=== PATIENT | female | born 1990 | race Two or more races ===

== ENCOUNTER 2024-01-06 23:07 | Observation (INO) | payer MEDICAID, OTHER ==
[~2024-01-06] VITALS: Ht 170.2 cm; Wt 113.4 kg
== END 2024-01-07 01:04 | disposition home or self-care (01) ==
LOC: LDRP 23:07
PROVIDERS: ADMIT Obstetrics & Gynecology; ATTEND Obstetrics & Gynecology
DX: O36.8130 Decreased fetal movements, third trimester, not applicable or unspecified (principal); Z3A.38 38 weeks gestation of pregnancy; Z79.899 Other long term (current) drug therapy
CPT/HCPCS: 59025; 76818; 81002; G0378

== ENCOUNTER 2024-04-08 16:57 | Emergency (ER) | payer MEDICAID ==
[~2024-04-08] VITALS: Ht 170.2 cm; Wt 105.6 kg
[2024-04-08 17:51] VITALS: BP 126/70; PULSE 129; RESP 22; O2SAT 97
[2024-04-08] MEDS ORDERED: KETOROLAC TROMETH 60MG/2ML VIAL IM ONE (19:00)
--- NOTE | 2024-04-08 23:53 | ED.PDOC ---
GI ASSESSMENT HPI Comments This patient is a pleasant but morbidly obese 33-year-old female who arrives the ED today with complaints of flu-like symptoms including fever, cough and body aches as well as pelvic pain that began yesterday and continued into today. Patient states that she thinks the pelvic pain is coming from the severe coughing started patient states the pelvic pain is at the site of her from several months back. Patient denies any recent travel or new food sources. Patient was febrile, tachycardic and tachypneic at arrival. Chief Complaint: Flu like Time Seen by MD: 18:52 Reviewed Notes: Nurses Notes Allergies: Coded Allergies: NO KNOWN ALLERGIES (Unverified , 01/06/24) Home Meds No Active Prescriptions or Reported Meds Information Source: Patient Mode of Arrival: Ambulatory Timing: Days Duration: Since onset Prehospital treatment: None Quality: Cramping, Sharp Vomitus: Bilious, Food Particles, Soft, Watery Severity: Moderate Recent: None Recent Hx of: None Pain Location: Other (Diffuse bilateral lower quadrant/pelvic pain.) Associated sign and symptoms: Fever Past Medical History PAST MEDICAL HISTORY: Denies Surgical History: Denies all surgeries PET STYLIST History: No Pertinent PET STYLIST History Family History Family History: Reviewed,noncontributory to illness, No family hx of Cancer, No family hx of DM, No family hx of Heart bulmaro, No family hx of HTN, No family hx ofKidney bulmaro, No family hx of Liver bulmaro, No family hx of Lung bulmaro, No family hx of Stroke Social History Smoker: Non-Smoker Alcohol: Denies ETOH Use Drugs: Denies Drug Use Lives In: Home Constitutional: reports: fatigue, fever, weakness; denies: chills, diaphoresis, malaise, sweats, others EENTM: denies: blurred vision, double vision, ear bleeding, ear discharge, ear drainage, ear pain, ear ringing, eye pain, eye redness, hearing loss, mouth pain, mouth swelling, nasal discharge, nose bleeding, nose congestion, nose pain, photophobia, tearing, throat pain, throat swelling, voice changes, others Respiratory: reports: cough; denies: hemoptysis, orthopnea, SOB at rest, shortness of breath, SOB with excertion, stridor, wheezing, others Cardiovascular: denies: chest pain, dizzy spells, diaphoresis, Dyspnea on exertion, edema, irregular heart beat, left arm pain, lightheadedness, palpitations, PND, syncope, others Gastrointestinal: reports: abdominal pain; denies: abdomen distended, blood streaked bowels, constipated, diarrhea, dysphagia, difficulty swallowing, hematemesis, melena, nausea, poor appetite, poor fluid intake, rectal bleeding, rectal pain, vomiting, others Genitourinary: denies: abnormal vagina bleeding, burning, dyspareunia, dysuria, flank pain, frequency, hematuria, incontinence, pain, , vagina discharge, urgency, others Neurological: denies: dizziness, fainting, headache, left sided numbness, left sided weakness, numbness, paresthesia, pre-existing deficit, right sided numbness, right sided weakness, seizure, speech problems, tingling, tremors, weakness, others Musculoskeletal: denies: back pain, gout, joint pain, joint swelling, muscle pain, muscle stiffness, neck pain, others Integumetry: denies: bruises, change in color, change in hair/nails, dryness, laceration, lesions, lumps, rash, wounds, others Allergic/Immunocompromised: denies: Difficulty Healing, Frequent Infections, Hives, Itching, others Hematologic/Lymphatic: denies: anemia, blood clots, easy bleeding, easy bruising, swollen glands, others Endocrine: denies: excessive hunger, excessive sweating, excessive thirst, excessive urination, flushing, intolerance to cold, intolerance to heat, une xplained weight gain, unexplained weight loss, others Psychiatric: denies: anxiety, bipolar disorder, depression, hopeless, panic disorder, schizophrenia, sleepless, suicidal, others Physical Exam General Appearance: Moderate Distress (Patient personally hemoptysis at time of evaluation due to lower belly pain and fever concerns. Patient looks moderately toxic.), Obese HEENT: Normal ENT Inspection, Pharynx Normal, TMs Normal Neck: Full Range of Motion, Non-Tender, Normal, Normal Inspection Respiratory: Chest Non-Tender, Lungs Clear, No Accessory Muscle Use, No Respiratory Distress, Normal Breath Sounds Cardiovascular: No Edema, No JVD, No Murmur, No Gallop, Normal Peripheral Pulses, Regular Rate/Rhythm Breast Exam: Deferred Gastrointestinal: Other (Diffuse bilateral lower abdominal/pelvic tenderness to palpation throughout her region. No signs of dehiscence. 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 Was a procedure done?: No GI differential Dx Differential Diagnosis: Other (Influenza a/B, COVID-19, viral illness, viral gastroenteritis, viral upper respiratory illness, urinary tract infection) X-Ray, Labs, Meds, VS Vital Signs Date Time Temp Pulse Resp B/P (MAP) Pulse Ox O2 Delivery O2 Flow Rate FiO2 04/08/24 17:51 100.8 129 22 126/70 (88) 97 X-Ray, Labs, Meds, VS Comment Patient was seen but patient never turned in her urine nor was she swabbed. Nursing notified me that the patient had eloped from the facility. Time of 1ST Reevaluation: 23:52 Reevaluation 1ST: Unchanged Consultation: PCP Patient Education/Counseling: Diagnosis, Treatment Family Education/Counseling: Diagnosis, Treatment Departure 1 Departure Time of Disposition: 23:52 Impression: Primary Impression: Viral illness Disposition: 07 LEFT AWOL/ELOPED Condition: Fair e-Prescriptions No Active Prescriptions or Reported Meds Discharged With: Self Critical Care Note Critical Care Time?: No Stability Stability form required: No Heart Score Heart Score: Heart Score Response (Comments) Value History N/A 0 EKG N/A 0 Age N/A 0 Risk Factors N/A 0 Troponin N/A 0 Total 0 KIRSTEN BOLAÑOS PAC Apr 08, 2024 23:53
== END 2024-04-08 23:30 | disposition left against medical advice (07) ==
LOC: ER 16:57
DX: B34.9 Viral infection, unspecified (principal)